=== PATIENT | female | born 1990 | race Caucasian/White ===

== ENCOUNTER 2023-11-21 20:39 | Emergency (ER) | payer OTHER ==
[~2023-11-21] VITALS: Ht 167.6 cm; Wt 68.0 kg
[2023-11-21] MEDS ORDERED: CIPROFLOXACIN HCL 500 MG TABLET ONE (22:45)
[2023-11-21 22:46] LABS: APPEARANCE,URINE SLIGHTLY CLOUDY (CLEAR); COLOR,URINE ORANGE (YELLOW)
[2023-11-21 22:47] LABS: PREGNANCY TEST URINE QUAL NEGATIVE (NEGATIVE)
[2023-11-21] MEDS: CIPROFLOXACIN HCL 500 MG TABLET PO ONE (22:48)
[2023-11-21 22:49] LABS: BACTERIA,URINE Rare /HPF (None Seen); FINE GRANULAR CASTS,URINE Few /LPF (None Seen); RBC,URINE 0-2 /HPF (0-2); SQUAMOUS EPITHELIAL CELL,UR Many /HPF (None Seen)
[2023-11-21] MEDS ORDERED: CIPR-263 PO (22:49)
[2023-11-21] MEDS: IBUPROFEN 600 MG TABLET PO ONE (22:55)
[2023-11-21 23:37] VITALS: BP 131/71; TEMP 98.2; O2SAT 99
== END 2023-11-21 23:37 | disposition home or self-care (01) ==
LOC: ER 20:45
DX: N39.0 Urinary tract infection, site not specified (principal)
CPT/HCPCS: 81001; 84703-TC; 87086-TC

== ENCOUNTER 2023-12-22 14:16 | Emergency (ER) | payer OTHER ==
[~2023-12-22] VITALS: Ht 162.6 cm; Wt 77.1 kg
[~2023-12-22 14:16] MED LIST: CIPR-263 PO
[2023-12-22 15:29] LABS: BASOPHILS % (AUTO) 0.3 % (0.0-2.0); EOSINOPHILS # (AUTO) 0.1 K/uL (0.0-0.7); EOSINOPHILS % (AUTO) 2.1 % (0.0-6.0); HEMATOCRIT 41 % (33-45); HEMOGLOBIN 13.7 g/dL (11.5-14.8); LYMPHOCYTES # (AUTO) 1.6 K/uL (0.8-4.8); LYMPHOCYTES % (AUTO) 24.8 % (20.0-44.0); MEAN CORPUSCULAR HEMOGLOBIN 31 PG (26.0-33.0); MEAN CORPUSCULAR HGB CONC 33 g/dl (31.0-36.0); MEAN CORPUSCULAR VOLUME 93 fL (82-100); MONOCYTES # (AUTO) 0.4 K/uL (0.1-1.30); MONOCYTES % (AUTO) 6.6 % (2.0-12.0); NEUTROPHILS # (AUTO) 4.2 K/uL (1.8-8.9); NEUTROPHILS % (AUTO) 66.2 % (43.0-81.0); PLATELET COUNT (AUTO) 184 K/uL (150-450); RED BLOOD CELL COUNT(AUTO) 4.42 MIL/uL (4.0-5.2); WHITE BLOOD COUNT (AUTO) 6.4 K/uL (4.3-11.0)
[2023-12-22] MEDS: IV NS 0.9% 1,000 ML BAG IV ONE (15:38)
[2023-12-22] MEDS ORDERED: LIDOCAINE 1%-EPI 1:100,000 20 ML VIAL ONE (15:43)
[2023-12-22 15:44] LABS: CALCIUM, SERUM 8.9 mg/dL (8.5-10.1); CARBON DIOXIDE 29 mmol/L (21-32); CHLORIDE 106 mmol/L (98-107); CREATININE 0.8 mg/dL (0.6-1.3); GLUCOSE 122 mg/dL (74-106); SODIUM SERUM 141 mmol/L (136-145); UREA NITROGEN, BLOOD 11 mg/dL (7-18)
[2023-12-22 15:47] LABS: INR 0.95 (0.91-1.10); PARTIAL THROMBOPLASTIN TIME 23.6 SEC (24.3-34.3); PROTHROMBIN TIME 10.1 SECS (9.2-11.1)
[2023-12-22] MEDS: LIDOCAINE 1%-EPI 1:100,000 50 ML VIAL IJ ONE (15:48)
[2023-12-22 15:50] LABS: ALANINE AMINOTRANSFERASE 33 U/L (12-78); ALBUMIN 4.1 g/dL (3.4-5.0); ALKALINE PHOSPHATASE 68 U/L (46-116); ASPARTATE AMINOTRANSFERASE 23 U/L (15-37); BILIRUBIN,DIRECT 0.1 mg/dL (0.0-0.2); BILIRUBIN,TOTAL 0.5 mg/dL (0.2-1.0); TOTAL PROTEIN, SERUM 7.7 g/dL (6.4-8.2)
[2023-12-22] MEDS ORDERED: KETOROLAC TROMETHAMINE 15 MG/ML VIAL ONE (15:50)
[2023-12-22] MEDS ORDERED: TDAP [DIPH/PERTUSSIS/TET] 0.5 ML VIAL IM ONE (15:50)
[2023-12-22] MEDS: KETOROLAC TROMETHAMINE 15 MG/ML VIAL IV ONE (16:01)
[2023-12-22] MEDS: TDAP [DIPH/PERTUSSIS/TET] 0.5 ML VIAL IM ONE (16:02)
[2023-12-22 17:21] VITALS: BP 126/72; TEMP 98.3; O2SAT 98
== END 2023-12-22 17:22 | disposition home or self-care (01) ==
LOC: ER 14:40
DX: S01.81XA Laceration without foreign body of other part of head, initial encounter (principal); R55 Syncope and collapse; Z79.899 Other long term (current) drug therapy; Z88.0 Allergy status to penicillin; X58.XXXA Exposure to other specified factors, initial encounter; Y93.89 Activity, other specified; Y92.89 Other specified places as the place of occurrence of the external cause; Y99.8 Other external cause status
CPT/HCPCS: 99285; 96374; 70450; 71045; 96361; 12011; 90471; 90715; 85025; 80048; 80076; 83735; 36415; 84484; 85730; 86850; 83880; 82962; 93005; J3490 ×2; J7030; J1885

== ENCOUNTER 2023-12-29 16:34 | Emergency (ER) | payer OTHER ==
[~2023-12-29] VITALS: Ht 162.6 cm; Wt 77.1 kg
[2023-12-29 16:35] VITALS: BP 126/83; TEMP 98.3
[2023-12-29 16:50] VITALS: O2SAT 99
== END 2023-12-29 16:50 | disposition home or self-care (01) ==
LOC: ER 16:40
DX: S01.111D Laceration without foreign body of right eyelid and periocular area, subsequent encounter (principal); Z48.02 Encounter for removal of sutures; Z88.0 Allergy status to penicillin; X58.XXXD Exposure to other specified factors, subsequent encounter

== ENCOUNTER 2024-04-25 15:58 | Emergency (ER) | payer OTHER ==
[~2024-04-25] VITALS: Ht 160 cm; Wt 77.1 kg
[2024-04-25 16:31] VITALS: BP 135/112; TEMP 98.2
[2024-04-25] MEDS ORDERED: ERYT3.5O9 RIGHTEYE (17:29)
[2024-04-25 17:38] VITALS: O2SAT 99
== END 2024-04-25 17:39 | disposition home or self-care (01) ==
LOC: ER 16:02
DX: H00.023 Hordeolum internum right eye, unspecified eyelid (principal); H02.843 Edema of right eye, unspecified eyelid; Z88.0 Allergy status to penicillin